=== PATIENT | female | born 1975 ===

== ENCOUNTER 2018-11-20 23:27 | Emergency (ER) | payer OTHER ==
[2018-11-21 00:24] VITALS: BP 106/68
--- NOTE | 2018-11-21 02:03 | XRay Report ---
PROCEDURE: XR WRIST 2V RT TECHNIQUE: 3 views of the right wrist. HISTORY: Painful right wrist. COMPARISONS: None available FINDINGS: Normal osseous mineralization. There is mild ulnar positive variance. No acute fracture. Carpal arcs overall maintained in the intercarpal spaces appear preserved. A small osseous ridge is noted the per ipheral margin of the distal radius. No chondrocalcinosis. IMPRESSION: 1. No acute fracture. 2. Ulnar positive variance. Concern for injury of the triangle fibrocartilage complex or the radiouln ar ligaments, MRI can further evaluate. 3. No significant degenerative change of the carpus. This document is electronically signed by Frandy Casey DO., November 21 2018 02:01:38 AM ET
--- NOTE | 2018-11-21 03:37 | Emergency Department Report ---
Upper Extremity - HPI Chief Complaint: Extremity Injury, Upper Stated Complaint: WRIST PAIN Time Seen by Provider: 11/21/18 03:13 Upper Extremity: Right Wrist Occurred When: 1 Day Mechanism: Hyperextension Severity: moderate Symptoms: Yes Pain with Movement, No Deformity, No Limited Range of Movement, No Numbness, No Weakness, No Swelling, No Bruising/Ecchymosis, No Laceration or Abrasion ED Review of Systems ROS: Stated complaint: WRIST PAIN Other details as noted in HPI Constitutional: denies: chills, fever Eyes: denies: eye pain, eye discharge, vision change ENT: denies: ear pain, throat pain Respiratory: denies: cough, shortness of breath, wheezing Cardiovascular: denies: chest pain, palpitations Endocrine: no symptoms reported Gastrointestinal: denies: abdominal pain, nausea, diarrhea Genitourinary: denies: urgency, dysuria, discharge Musculoskeletal: arthralgia. denies: back pain, joint swelling, myalgia, other Skin: denies: rash, lesions Neurological: denies: headache, weakness, paresthesias Psychiatric: denies: anxiety, depression Hematological/Lymphatic: denies: easy bleeding, easy bruising ED Past Medical Hx - Past Medical History Previous Medical History?: No - Surgical History Past Surgical History?: No - Social History Smoking Status: Never Smoker Substance Use Type: None - Medications Home Medications: Home Medications Medication Instructions Recorded Confirmed Last Taken Type Cyclobenzaprine [Flexeril] 10 mg PO TID PRN #30 tablet 11/21/18 Unknown Rx Naproxen 500 mg PO BID #30 tablet 11/21/18 Unknown Rx Upper Extremity Exam - Exam General: Vital signs noted. No distress. Alert and acting appropriately. Head and Torso: No HEENT Abnormality, No Neck Tenderness, No Chest/Lungs Abnormality, No Abdominal Tenderness, No Back Tenderness Shoulder Exam: Yes Normal Range of Motion in Shoulder, No Shoulder Tenderness, No Clavicle Tenderness, No Shoulder Deformity, No AC Joint Tenderness Arm Exam: No Arm/Humerus Tenderness, No Arm Deformity Elbow: No Elbow Tenderness, No Normal Range of Motion in Elbow, No Elbow Deformity Forearm: No Forearm Tenderness, No Forearm Deformity, No Pain with Pronation, No Pain with Supination Wrist: Yes Wrist Tenderness, Yes Normal ROM in Wrist, No Wrist Deformity, No Snuffbox Tenderness, No Pain with Axial Thumb Compression Hand: Yes Normal ROM in Digit(s), No Hand Tenderness, No Hand Deformity, No Digit Tenderness, No Digit(s) Deformity, No Tendon Dysfunction CMS Exam: Yes Normal Distal Pulses, Yes Normal Capillary Refill, Yes Normal Distal Sensation, No Broken Skin ED Course Vital Signs 11/20/18 11/21/18 23:33 00:22 Temperature 98.1 F 98.1 F Pulse Rate 92 H 92 H Respiratory 18 Rate Blood Pressure 106/68 106/68 O2 Sat by Pulse 99 100 Oximetry ED Medical Decision Making - Radiology Data Radiology results: report reviewed, image reviewed Patient: MICHELLE SLAUGHTER MR#: [id number] : 1975 Acct:[id number] Age/Sex: 43 / F ADM Date: 11/20/18 Loc: ED Attending Dr: Ordering Physician: SHITAL PATEL MD Date of Service: 11/21/18 Procedure(s): XR wrist 2V RT Accession Number(s): [id number] cc: ED MD JORGE Fluoro Time In Minutes: PROCEDURE: XR WRIST 2V RT TECHNIQUE: 3 views of the right wrist. HISTORY: Painful right wrist. COMPARISONS: None available FINDINGS: Normal osseous mineralization. There is mild ulnar positive variance. No acute fracture. Carpal arcs overall maintained in the intercarpal spaces appear preserved. A small osseous ridge is noted the peripheral margin of the distal radius. No chondrocalcinosis. IMPRESSION: 1. No acute fracture. 2. Ulnar positive variance. Concern for injury of the triangle fibrocartilage complex or the radioulnar ligaments, MRI can further evaluate. 3. No significant degenerative change of the carpus. 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 Critical care attestation.: If time is entered above; I have spent that time in minutes in the direct care of this critically ill patient, excluding procedure time. ED Disposition Clinical Impression: Right wrist sprain Qualifiers: Encounter type: initial encounter Qualified Code(s): S63.501A - Unspecified sprain of right wrist, initial encounter Disposition: DC-01 TO HOME OR SELFCARE Is pt being admited?: No Does the pt Need Aspirin: No Condition: Stable Instructions: Wrist Injury (ED), Wrist Sprain (ED) Prescriptions: Cyclobenzaprine [Flexeril] 10 mg PO TID PRN #30 tablet PRN Reason: Muscle Spasm Naproxen 500 mg PO BID #30 tablet Referrals: JOSH KEYES MD [Staff Physician] - 3-5 Days Forms: Work/School Release Form(ED) Time of Disposition: 03:45
== END 2018-11-21 03:55 | disposition home or self-care (01) ==
LOC: ED 23:27
DX: S63.501A Unspecified sprain of right wrist, initial encounter (principal); X58.XXXA Exposure to other specified factors, initial encounter; Y93.89 Activity, other specified; Y92.89 Other specified places as the place of occurrence of the external cause; Y99.8 Other external cause status